=== PATIENT | female | born 2000 | race Asian ===

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

== ENCOUNTER → 2022-08-14 | Outpatient (CLI) | payer BC ==
[2022-08-14 12:22] LABS: HEMATOCRIT. 43.3 % (36.0-48.0); HEMOGLOBIN. 14.5 g/dL (12.0-16.0); MEAN CORPUSCULAR HEMOGLOBIN 30.2 pg (28.0-32.0); MEAN PLATELET VOLUME 7.1 fl (7.4-10.4); PLATELET 226 x1000/uL (130-400); RED BLOOD CELL COUNT 4.81 mill/uL (4.2-5.4); RED CELL DISTRIBUTION WIDTH 12.9 % (11.6-14.6)
[2022-08-14 12:33] LABS: CHLORIDE 102 mEq/L (98-107)
[2022-08-14 12:48] LABS: HDL CHOLESTEROL 53 mg/dL (40-59); LDL CHOLESTEROL 111 mg/dL (5-100)
[2022-08-14 13:12] LABS: CLARITY URINE CLEAR (CLEAR); COLOR URINE YELLOW (YELLOW); KETONES URINE TRACE (NEGATIVE); LEUKOCYTE ESTERASE URINE NEGATIVE (NEGATIVE); NITRITE URINE NEGATIVE (NEGATIVE); OCCULT BLOOD URINE NEGATIVE (NEGATIVE); PH URINE 6.5 (4.5-8.0); PROTEIN URINE NEGATIVE (NEGATIVE); SPECIFIC GRAVITY URINE 1.021 (1.005-1.030); UROBILINOGEN URINE 0.2 E.U./dL (0.2-1.0)
[2022-08-14 21:51] LABS: PLATELET ESTIMATE NORMAL
[2022-08-15 06:07] LABS: VITAMIN D 25-OH 38.4 ng/mL (30.0-100.0)
== END | disposition home or self-care (01) ==
LOC: LAB 11:50
PROVIDERS: ATTEND Family Medicine
DX: Z00.00 Encounter for general adult medical examination without abnormal findings (principal)
CPT/HCPCS: 36415; 80053; 80061; 81003; 82306; 83036; 84436; 84443; 84481; 85025; 86376; 87591

== ENCOUNTER → 2022-08-20 | Outpatient (CLI) | payer BC | END | disposition home or self-care (01) | LOC: US 12:39 | PROVIDERS: ATTEND Family Medicine | DX: R22.1 Localized swelling, mass and lump, neck (principal) | CPT/HCPCS: 76536 ==

== ENCOUNTER 2023-01-05 15:33 | Emergency (ER) | payer BC ==
[~2023-01-05] VITALS: Ht 157.5 cm; Wt 64.0 kg
[2023-01-05 15:47] VITALS: BP 120/90
[2023-01-05] MEDS ORDERED: BENZ200C52 MT (16:46)
== END 2023-01-05 17:07 | disposition home or self-care (01) ==
LOC: ER 15:33
DX: R05.1 Acute cough (principal)
CPT/HCPCS: 71045; 99283

== ENCOUNTER → 2023-03-12 | Outpatient (CLI) | payer BC ==
[~2023-03-12] MED LIST: BENZ200C52 MT
[2023-03-12 09:35] LABS: CHLORIDE 108 mEq/L (98-107)
== END | disposition home or self-care (01) ==
LOC: LAB 09:06
PROVIDERS: ATTEND Obstetrics & Gynecology Obstetrics
DX: Z13.1 Encounter for screening for diabetes mellitus (principal); Z13.228 Encounter for screening for other metabolic disorders
CPT/HCPCS: 36415; 80053; 82947; 82951; 83036